=== PATIENT | female | born 1990 | race Caucasian/White ===

== ENCOUNTER 2018-01-26 20:15 | Emergency (ER) | payer OTHER ==
[~2018-01-26] VITALS: Ht 167.6 cm; Wt 122.5 kg
--- NOTE | ~2018-01-26 | EKG ---
[address] [place] [address] ELECTROCARDIOGRAM REPORT Name: MADELYN SERRANO Room #: [facility] Hidalgo#: [id number] Admission: 01/26/18 Attend Phys: Discharge: 01/27/18 Date of : [birth year] Report #: [id number] THIS REPORT FOR: //name// [facility] ED Test Date: 2018-01-26 Test Time: 20:33:40 Pat Name: MADELYN SERRANO Department: Room: Gender: F Clinical Nurse Specialist: : 1990 Requested By: Cary Patel Order Number: [id number] MD: Pawel Wiseman Measurements Intervals [place] Rate: 65 P: 12 TX: 127 QRS: 42 QRSD: 95 T: 20 QT: 400 QTc: 416 Interpretive Statements Sinus rhythm Normal tracing No previous ECG available for comparison Electronically Signed On 01-27-2018 8:58:42 CDT by Pawel Wiseman [email or web address] <ELECTRONICALLY SIGNED> By: Pawel Wiseman MD, [facility] 01/27/18 0858 2033 32 Pawel Wiseman MD, FACC /EPI
[2018-01-26 21:57] LABS: ABSOLUTE NEUTROPHILS 5.1 thou/uL (1.4-8.2); BASOPHILS 0.6 % (0.0-2.0); EOSINOPHILS 1.5 % (0.0-3.0); HEMATOCRIT 38.5 % (37.0-47.0); HEMOGLOBIN 13.1 gm/dL (12.0-15.0); LYMPHOCYTES 28.9 % (24.0-44.0); MCV 91.2 fL (80.0-100.0); MONOCYTES 6.4 % (1.0-8.0); PLATELET COUNT 366 thou/uL (150-400); POLYS 62.6 % (36.0-66.0); RBC 4.22 mil/uL (4.20-5.00); RDW 12.7 % (10.5-14.5); WBC 8.2 thou/uL (4.0-11.0)
[2018-01-26 22:03] LABS: ANION GAP 7 mmol/L (7-16); BUN 8 mg/dL (7-18); CALCIUM 9.6 mg/dL (8.5-10.1); CHLORIDE 103 mmol/L (98-107); CO2 29 mmol/L (21-32); CREATININE 0.7 mg/dL (0.6-1.0); GLUCOSE 105 mg/dL (74-106); POTASSIUM 3.8 mmol/L (3.5-5.1); SODIUM 139 mmol/L (136-145)
[2018-01-26 22:11] LABS: TROPONIN-I <0.06 ng/mL (<0.06)
[2018-01-27] MEDS ORDERED: MOBIC15 MG PO (00:06)
== END 2018-01-27 00:50 | disposition home or self-care (01) ==
LOC: ER 20:15
PROVIDERS: Emergency Medicine
DX: M94.0 Chondrocostal junction syndrome [Tietze] (principal); E11.9 Type 2 diabetes mellitus without complications

== ENCOUNTER 2020-06-09 14:32 | Emergency (ER) | payer OTHER ==
[~2020-06-09] VITALS: Ht 167.6 cm; Wt 133.8 kg
[~2020-06-09 14:32] MED LIST: MOBIC15 MG PO
[2020-06-09 15:00] LABS: ABSOLUTE NEUTROPHILS 5.6 thou/uL (1.4-8.2); BASOPHILS 0.7 % (0.0-2.0); EOSINOPHILS 1.8 % (0.0-3.0); HEMATOCRIT 38.2 % (37.0-47.0); HEMOGLOBIN 12.4 gm/dL (12.0-15.0); LYMPHOCYTES 25.5 % (24.0-44.0); MCH 29.7 pg (26.0-34.0); MCHC 32.5 g/dL (28.0-37.0); MCV 91.4 fL (80.0-100.0); MONOCYTES 5.3 % (1.0-8.0); PLATELET COUNT 352 thou/uL (150-400); POLYS 66.7 % (36.0-66.0); RBC 4.18 mil/uL (4.20-5.00); RDW 13.4 % (10.5-14.5); WBC 8.5 thou/uL (4.0-11.0)
[2020-06-09 15:09] LABS: CALCIUM 9.3 mg/dL (8.5-10.1); CREATININE 0.8 mg/dL (0.6-1.0)
[2020-06-09 15:15] LABS: ALBUMIN 3.7 g/dL (3.4-5.0); TOTAL BILIRUBIN 0.2 mg/dL (0.2-1.0); TOTAL PROTEIN 8.1 g/dL (6.4-8.2)
[2020-06-09 16:22] LABS: URINE BILIRUBIN NEGATIVE (Negative); URINE BLOOD TRACE (Negative); URINE CLARITY CLEAR; URINE COLOR YELLOW; URINE GLUCOSE-RANDOM* NEGATIVE (Negative); URINE KETONES NEGATIVE (Negative); URINE LEUKOCYTES-REFLEX TRACE (Negative); URINE NITRITE-REFLEX NEGATIVE (Negative); URINE PROTEIN (DIPSTICK) NEGATIVE (Negative); URINE SPECIFIC GRAVITY <= 1.005 (1.005-1.035); URINE UROBILINOGEN 0.2 E.U./dl (0.2-1.0)
[2020-06-09] MEDS ORDERED: ONDANSETRON HCL4 M2 PO ×2 (17:37→20:35)
[2020-06-09] MEDS ORDERED: ULTRAM 50MG TAB50 MG PO ×2 (17:37→20:35)
[2020-06-09 20:35] VITALS: BP 140/95
== END 2020-06-09 20:30 | disposition home or self-care (01) ==
LOC: ER 14:32
PROVIDERS: Emergency Medicine; Nurse Practitioner
DX: R10.33 Periumbilical pain (principal)

== ENCOUNTER 2020-06-12 19:29 | Inpatient (IN) | payer OTHER ==
[~2020-06-12] VITALS: Ht 167.6 cm; Wt 138.8 kg
--- NOTE | ~2020-06-12 | O ---
[facility] [place] [address] OPERATIVE REPORT Name: MADELYN SERRANO Room #: 439-P [facility] M.R.#: [id number] Admission: 06/12/20 Attend Phys: Bg Hardin, Discharge: 06/13/20 Date of : [birth year] Report #: [id number] THIS REPORT FOR: cc: FAM - No family physician/PCP FAM - No family physician/PCP Bg Hardin MD ~ DATE OF SERVICE: 06/13/2020 PREOPERATIVE DIAGNOSIS: Incarcerated ventral hernia. POSTOPERATIVE DIAGNOSIS: Incarcerated ventral hernia. OPERATION: Laparoscopic repair of incarcerated ventral hernia with mesh. SURGEON: Bg Hardin MD ANESTHESIA: General. ESTIMATED BLOOD LOSS: Minimal. SPECIMEN: None. DESCRIPTION OF PROCEDURE: After informed consent was obtained, the patient was brought to the operating room and placed supine. SCDs were placed and working, preoperative antibiotics were administered, general anesthesia was induced. The abdomen was prepped and draped in the usual sterile fashion. A 5 mm incision was made in the left upper quadrant. A 5 mm trocar was placed under direct vision. Pneumoperitoneum was established. Left-sided 8 mm trocar and a right-sided 5 mm trocar was placed. The patient had incarcerated preperitoneal fat and an umbilical hernia defect. This was all reduced. Hernia defect measured less than 1 cm. A Bard Echo 11 cm mesh was inserted. It was brought up to the abdominal wall and the balloon was inflated. The mesh was then tacked up to the abdominal wall with 25 absorbable tacks. A transfascial 2-0 Ethibond suture was placed in the midline superior aspect of the mesh with a PMI suture passer. The balloon of the Echo was then removed. The hernia was widely covered. The ports were then removed under direct vision. The skin was closed with 4-0 Monocryl. Incisions were dressed with Steri-Strips. COMPLICATIONS: None. [address] [address] OPERATIVE REPORT Name: MADELYN SERRANO Room #: [facility].#: [id number] Admission: 06/12/20 Attend Phys: Bg Hardin, Discharge: 06/13/20 Date of : [birth year] Report #: [id number] DISPOSITION: The patient was taken to recovery in satisfactory condition. By: [id number] Bg Hardin MD /carmen
[~2020-06-12 19:29] MED LIST changes: +ONDANSETRON HCL4 M2 PO; +ULTRAM 50MG TAB50 MG PO
[2020-06-12 19:34] VITALS: BP 146/100
[2020-06-12 19:46] LABS: URINE BILIRUBIN NEGATIVE (Negative); URINE BLOOD TRACE (Negative); URINE CLARITY CLEAR; URINE COLOR YELLOW; URINE GLUCOSE-RANDOM* NEGATIVE (Negative); URINE KETONES NEGATIVE (Negative); URINE LEUKOCYTES-REFLEX NEGATIVE (Negative); URINE NITRITE-REFLEX NEGATIVE (Negative); URINE PROTEIN (DIPSTICK) NEGATIVE (Negative); URINE SPECIFIC GRAVITY <= 1.005 (1.005-1.035); URINE UROBILINOGEN 0.2 E.U./dl (0.2-1.0)
[2020-06-12 22:37] LABS: ABSOLUTE NEUTROPHILS 5.5 thou/uL (1.4-8.2); BASOPHILS 0.6 % (0.0-2.0); EOSINOPHILS 2.9 % (0.0-3.0); HEMOGLOBIN 12.6 gm/dL (12.0-15.0); LYMPHOCYTES 24.5 % (24.0-44.0); MCH 29.6 pg (26.0-34.0); MCHC 32.2 g/dL (28.0-37.0); MCV 91.7 fL (80.0-100.0); MONOCYTES 7.1 % (1.0-8.0); PLATELET COUNT 331 thou/uL (150-400); POLYS 64.9 % (36.0-66.0); RBC 4.25 mil/uL (4.20-5.00); RDW 13.9 % (10.5-14.5); WBC 8.4 thou/uL (4.0-11.0)
[2020-06-12 22:43] LABS: CREATININE 0.8 mg/dL (0.6-1.0); POTASSIUM 4.5 mmol/L (3.5-5.1)
--- NOTE | 2020-06-12 22:45 | NUR ---
DR GREGG PAGED TO INFORM HIM OF PT ARRIVAL TO ER.
[2020-06-12 22:50] LABS: ALBUMIN 3.4 g/dL (3.4-5.0); TOTAL BILIRUBIN 0.3 mg/dL (0.2-1.0); TOTAL PROTEIN 7.9 g/dL (6.4-8.2)
[2020-06-12 23:43] VITALS: BP 146/100
[2020-06-12 23:54] VITALS: BP 128/78
[2020-06-13 00:12] VITALS: BP 129/68
--- NOTE | 2020-06-13 01:21 | NUR ---
ADMISSION ASSESSMENT COMPLETED. PT ALERT AND ORIENTED. IV FLUIDS STARTED. PT DENIES PAIN AT THIS TIME. ORIENTED TO ROOM, STAFF AND USE OF CALL LIGHT, SHE IS UP AD SHERRILL-FALL EDUCATION HOWEVER PROVIDED.AFEBRILE.NO FURTHER CONCERNS AT THIS TIME. SHE IS NPO WITH PLANS FOR SURGERY IN THER AM.
[2020-06-13 07:52] VITALS: BP 131/78
--- NOTE | 2020-06-13 10:02 | NUR ---
CM COMPLETED THE INITIAL ASSESSMENT TO DISCUSS D/C PLANNING. PT LIVES HOME "WITH A FRIEND." PT DENIES HX WITH SNF OR HH. PT HAS NO DME. PT HAS NO PCP OR INSURANCE. PT IS ACTIVE AND INDEPENDENT W/CARES AND DRIVES A VEHICLE. CM TO PROVIDE SAFETY NET CLINIC AND/OR [facility] RESOURCES. NO OTHER ANTICIPATED CM NEEDS.
--- NOTE | 2020-06-13 11:22 | NUR ---
ASSUMED PT CARE THIS AM. PT VSS, A&OX4. PT MAKES NEEDS KNOWN, CALLING APPROPRIATELY. REPORTING MINIMAL PAIN IN HER ABDOMEN. REPORTING NO NAUSEA OR VOMITING. ON ROOM AIR. IV APTENT, SALINE LOCKED. REMAINS NPO, COVID TEST COMPLETED.
[2020-06-13] MEDS ORDERED: NORCO5 PO (12:45)
[2020-06-13 14:38] VITALS: BP 140/86
[2020-06-13 15:17] VITALS: BP 132/80
[2020-06-13 15:56] VITALS: BP 132/80
== END 2020-06-13 16:27 | disposition home or self-care (01) | DRG 355 ==
LOC: ER 19:29 → EROBS 23:26 → 4S 23:55
PROVIDERS: Emergency Medicine; Physician Assistant; ADMIT Surgery; ATTEND Surgery
PROC: 0WUF4JZ Supplement Abdominal Wall with Synthetic Substitute, Percutaneous Endoscopic Approach (ICD-10-PCS; principal; 2020-06-13)
DX: K43.6 Other and unspecified ventral hernia with obstruction, without gangrene (principal); K42.9 Umbilical hernia without obstruction or gangrene; Z79.899 Other long term (current) drug therapy; Z20.822 Contact with and (suspected) exposure to COVID-19
CPT/HCPCS: 10195; 50010; 50101; 58574

== ENCOUNTER 2021-05-16 13:11 | Emergency (ER) | payer OTHER ==
[~2021-05-16] VITALS: Ht 167.6 cm; Wt 136.1 kg
[~2021-05-16 13:11] MED LIST changes: +NORCO5 PO
[2021-05-16] MEDS ORDERED: NOHOMEMEDICATIONS (13:19)
[2021-05-16 13:51] LABS: URINE BILIRUBIN NEGATIVE (Negative); URINE BLOOD 3+ (Negative); URINE CLARITY CLEAR; URINE COLOR YELLOW; URINE GLUCOSE-RANDOM* NEGATIVE (Negative); URINE KETONES NEGATIVE (Negative); URINE LEUKOCYTES-REFLEX NEGATIVE (Negative); URINE NITRITE-REFLEX NEGATIVE (Negative); URINE PROTEIN (DIPSTICK) NEGATIVE (Negative); URINE UROBILINOGEN 0.2 E.U./dl (0.2-1.0)
[2021-05-16 13:52] LABS: ABSOLUTE NEUTROPHILS 4.7 thou/uL (1.4-8.2); BASOPHILS 0.6 % (0.0-2.0); EOSINOPHILS 3.7 % (0.0-3.0); HEMATOCRIT 40.7 % (37.0-47.0); HEMOGLOBIN 13.1 gm/dL (12.0-15.0); LYMPHOCYTES 26.5 % (24.0-44.0); MCHC 32.3 g/dL (28.0-37.0); PLATELET COUNT 356 thou/uL (150-400); POLYS 64.2 % (36.0-66.0); RBC 4.37 mil/uL (4.20-5.00); RDW 13.4 % (10.5-14.5); WBC 7.3 thou/uL (4.0-11.0)
[2021-05-16 14:07] LABS: CALCIUM 9.2 mg/dL (8.5-10.1)
[2021-05-16 14:08] LABS: CREATININE 0.8 mg/dL (0.6-1.0); POTASSIUM 4.2 mmol/L (3.5-5.1)
[2021-05-16 14:14] LABS: BACTERIA-REFLEX 1-9 Few /HPF (None Seen); CASTS None Seen /LPF (None Seen); CRYSTALS None Seen /LPF (None Seen); SQUAMOUS 0-3 Few /LPF (0-3); URINE RBC 3-10 Few /HPF (NONE SEEN); URINE WBC-REFLEX 0-5 Rare /HPF (0-5)
[2021-05-16 14:24] LABS: TOTAL BILIRUBIN 0.2 mg/dL (0.2-1.0)
[2021-05-16 14:25] LABS: ALBUMIN 3.5 g/dL (3.4-5.0); TOTAL PROTEIN 7.5 g/dL (6.4-8.2)
[2021-05-16] MEDS ORDERED: FLEXERIL PO (14:45)
[2021-05-16] MEDS ORDERED: MEDROLDOSEPACK PO (14:45)
[2021-05-16 14:53] VITALS: BP 120/77
--- NOTE | 2021-05-18 07:36 | EKG ---
[place] [address] [facility] [place] [address] ELECTROCARDIOGRAM REPORT Name: MADELYN SERRANO Room #: [facility]#: [id number] Admission: 05/16/21 Attend Phys: Discharge: 05/16/21 Date of : [birth year] Report #: [id number] [facility] ED Test Date: 2021-05-16 Test Time: 13:17:37 Pat Name: MADELYN SERRANO Department: Room: Gender: F [employer]: ALANNA : 1990 Requested By: Alfredo Mancera Order Number: [id number] MD: Avel Elias Measurements Intervals [place] Rate: 82 P: 13 IN: 121 QRS: 49 QRSD: 85 T: 15 QT: 356 QTc: 416 Interpretive Statements Sinus rhythm Compared to ECG 01/26/2018 20:33:40 No significant changes Electronically Signed On 05-18-2021 7:36:25 BUSINESS PROCESS LEAD by Avel Elias [email or web address] <ELECTRONICALLY SIGNED> By: Avel Elias MD, [facility] 05/18/21 0736 1317 1317 Avel Elias MD, FACC /EPI
== END 2021-05-16 14:53 | disposition home or self-care (01) ==
LOC: ER 13:11
PROVIDERS: Physician Assistant
DX: M94.0 Chondrocostal junction syndrome [Tietze] (principal)